=== PATIENT | female | born 1955 | race Caucasian/White ===

== ENCOUNTER 2022-02-09 21:49 | Emergency (ER) | payer OTHER, SELFPAY ==
--- NOTE | ~2022-02-09 | XR_ITS ---
EXAMINATION: XR SHOULDER, LEFT CLINICAL INFORMATION: Post reduction COMPARISON: None TECHNIQUE: One view of the left shoulder. FINDINGS: The previously seen glenohumeral dislocation has been successfully reduced. No fracture is seen on this single view. XR/XR shoulder LT 1V IMPRESSION: Successful reduction of left shoulder dislocation.
--- NOTE | ~2022-02-09 | XR_ITS ---
EXAMINATION: XR SHOULDER, LEFT CLINICAL INFORMATION: Shoulder pain COMPARISON: None TECHNIQUE: Three views of the left shoulder. FINDINGS: There is adfne - inferior dislocation of the left glenohumeral joint. No fractures are seen XR/XR shoulder LT min 2V IMPRESSION: Left shoulder dislocation.
[2022-02-09 22:01] VITALS: BP 135/83; PULSE 108; RESP 18; TEMP 36.2; O2SAT 97; BMI 32.1
[2022-02-09] MEDS: Acetaminophen 325 MG TABLET 650 MG PO (23:04)
--- NOTE | 2022-02-09 23:08 | PC.NURSE ---
PT A&Ox3, reports 10/10 left shoulder pain after fall. PT unable to lay on back due to pain. Meds given as documented.
[2022-02-09 23:19] VITALS: BP 160/93; PULSE 93; RESP 17; TEMP 36.4; O2SAT 96
[2022-02-09] MEDS: 0.9 % Sodium Chloride 1,000 ML 999 ML IV (23:54)
[2022-02-09] MEDS: Morphine Sulfate 4 MG/ML CARTRIDGE IVPUSH (23:54)
[2022-02-09] MEDS: ondansetron HCL 4 MG/2 ML VIAL IVPUSH (23:54)
--- NOTE | 2022-02-09 23:59 | ED_ITS ---
HPI - Extremity Problem General Chief complaint: Extremity Injury, Upper Stated complaint: ?dislocation of shoulder Time Seen by Provider: 02/09/22 23:17 Source: patient Mode of arrival: ambulatory Limitations: no limitations History of Present Illness HPI Narrative: Apparently patient tripped had a mechanical fall tried to catch herself came with pain in the left shoulder with obvious deformity x-ray shows anterior dislocate no fracture no other injuries Related Data Previous Rx's Medication Instructions Recorded ibuprofen 600 mg tablet 600 mg PO Q6H PRN fever or pain 02/10/22 #30 tabs Allergies Allergy/AdvReac Type Severity Reaction Status Date / Time No Known Allergies Allergy Unverified 11/15/19 19:03 [No Known Allergies*] Review of Systems Review of Systems: Yes all other systems are reviewed and are negative FOR[facility]LY [facility] Social History Social History Advance Directives: No Advance Directives Information Provided: Yes Physical Exam Vital Signs: Vital Signs: Last Vital Signs Temp 97.6 F 02/09/22 23:19 Pulse 93 02/09/22 23:19 Resp 17 02/09/22 23:19 BP 160/93 H 02/09/22 23:19 Pulse Ox 96 02/09/22 23:19 O2 Del Method 02/09/22 23:19 BMI result Body Mass Index 32.1 Appearance: Alert. Oriented X3. No acute distress. Eyes: PERRLA, No Nystagmus ENT: Pharynx normal. Oral Mucosa moist At NC Neck: Normal inspection. Neck supple. CVS: Normal heart rate and rhythm. Pulses normal. Respiratory: No respiratory distress. Equal air entry bilateral, no wheezing/rales/rhonchi Abdomen: Soft and nontender. Bowel sounds are present, no mass palpable, no CVA tenderness Skin: Skin warm and dry. Normal skin color. Normal skin turgor. Extremities: No lower extremity edema. No calf tenderness left arm adducted with squared contour, neurovascular intact Neuro: Oriented X 3. No motor deficit. No sensory deficit.No cerebellar signs , cranial nerves II-XII intact Medications Administered Discontinued Medications Generic Name Dose Route Start Last Admin Trade Name Freq PRN Reason Stop Dose Admin Acetaminophen 650 mg 02/09/22 22:05 02/09/22 23:04 Acetaminophen 325 Mg Tablet PO 02/09/22 22:06 650 mg ONCE ONE Administration Sodium Chloride 1,000 mls @ 999 mls/hr 02/09/22 23:48 02/10/22 00:55 Ns IV 02/10/22 00:48 Infused .Q1H1M ONE Infusion Morphine Sulfate 4 mg 02/09/22 23:48 02/09/22 23:54 Morphine Sulfate 4 Mg/Ml Cartridge IVPUSH 02/09/22 23:49 4 mg ONCE ONE Administration Protocol Ondansetron HCl 4 mg 02/09/22 23:48 02/09/22 23:54 Ondansetron Hcl 4 Mg/2 Ml Vial IVPUSH 02/09/22 23:49 4 mg ONCE ONE Administration Medical Decision Making Medical Decision Making MDM Narrative: Patient with left shoulder anterior dislocation reduced by scapular manipulation technique post reduction x-ray showed normal joint Procedures Orthopedic Joint Reduction Joint #1: Side: left Joint Reduction Location: shoulder Shoulder Technique Used (if applicable): scapula manipulation Post-reduction neuro exam: intact Post-reduction vascular: intact Post Reduction X-Ray Obtained: Yes Post Reduction X-Ray Results: reduced Patient Tolerated Procedure: well Discharge Plan Discharge Clinical Impression: Anterior dislocation of left shoulder Patient Disposition: Home, Self-Care Instructions: Shoulder Dislocation (ED) Additional Instructions: Rest your left arm in sling for 2-3 weeks to get completely better Tylenol/Motrin for pain Prescriptions: New ibuprofen 600 mg tablet 600 mg PO Q6H PRN (Reason: fever or pain) Qty: 30 0RF Stand Alone Forms: Work/School Release Interventions: ED Discharge Assessment Last Done: 02/10/22 01:53 Discharge Date/Time: 02/10/22 01:54
--- NOTE | 2022-02-10 | MHC.EDTECH ---
Pt vomited on herself Pt cleaned up and changed into hospital gown. Bed linen changed. Pt given warm blanket and call mooney placed in reach
--- NOTE | 2022-02-10 01:19 | PC.NURSE ---
Sling applied by pilot plant research technician to left arm. PT reports no pain at this time.
== END 2022-02-10 01:54 | disposition home or self-care (01) ==
PROVIDERS: Emergency Provider Internal Medicine
DX: S43.005A Unspecified dislocation of left shoulder joint, initial encounter (principal); M25.512 Pain in left shoulder; W01.0XXA Fall on same level from slipping, tripping and stumbling without subsequent striking against object, initial encounter; Y93.9 Activity, unspecified; Y92.9 Unspecified place or not applicable; Y99.9 Unspecified external cause status
CPT/HCPCS: 23650; 73020; 73030; 96361; 96374; 96375; 99284; J2270; J2405

== ENCOUNTER 2022-02-15 15:45 | Outpatient (REF) | payer OTHER, SELFPAY | END 2022-02-15 15:46 | disposition home or self-care (01) | LOC: HO.HOSX 15:45 | PROVIDERS: Visit Provider Physician Assistant | DX: M25.532 Pain in left wrist (principal) | CPT/HCPCS: 73110 ==

== ENCOUNTER 2022-02-18 11:54 | Outpatient (REF) | payer OTHER, SELFPAY ==
--- NOTE | 2022-02-18 09:27 | EMG_ITS ---
Left median and ulnar motor and sensory studies were performed. Left radial sensory and median and lateral antecubital brachial studies were performed and needle examination was performed. IMPRESSION: 1. Acute left brachial plexopathy, mostly affecting lateral part. 2. [id number] left median neuropathy across carpal tunnel. There is likely also injury to left axillary nerve, which would be difficult to define at this time. Repeat study is recommended in 4-8 weeks' time for better definition. MD LAWRENCE Parada/SUSI MTDD / [id number]
== END 2022-02-18 11:55 | disposition home or self-care (01) ==
LOC: HO.NEURO 11:54
PROVIDERS: Visit Provider Physician Assistant
DX: R20.0 Anesthesia of skin (principal); R20.2 Paresthesia of skin; M54.12 Radiculopathy, cervical region; S43.005A Unspecified dislocation of left shoulder joint, initial encounter
CPT/HCPCS: 95886; 95910

== ENCOUNTER → 2022-03-04 13:01 | Outpatient (BNVA) | payer OTHER, SELFPAY | PROVIDERS: PCP Pediatrics; Visit Provider Physician Assistant | DX: Z13.89 Encounter for screening for other disorder (principal) ==

== ENCOUNTER → 2022-04-08 14:40 | Outpatient (BNVA) | payer OTHER, SELFPAY | PROVIDERS: PCP Pediatrics; Visit Provider Physician Assistant | DX: Z13.89 Encounter for screening for other disorder (principal) ==

== ENCOUNTER 2022-05-04 14:54 | Outpatient (REF) | payer OTHER, SELFPAY ==
--- NOTE | ~2022-05-04 | MR_ITS ---
EXAMINATION: MR SHOULDER WITHOUT CONTRAST, LEFT CLINICAL INFORMATION: Left shoulder injury, pain. COMPARISON: Radiograph 02/10/2022. TECHNIQUE: MRI of the shoulder without contrast is performed on a 1.5 Dinah high-field scanner. FINDINGS: ROTATOR CUFF: Near-complete tear of the supraspinatus tendon with some posterior-most fibers remaining intact blending with the infraspinatus. The bulk of the tendon is retracted beyond the apex of the humeral head, approximately 2.7 cm. The rotator cuff appears otherwise intact. Moderate atrophy and mild fatty infiltration of the supraspinatus muscle. BICEPS: Normal. CORACOACROMIAL ARCH: The undersurface of the acromion is curved with anterior spurring. Mild acromioclavicular osteoarthritis. LABRUM/CAPSULE: The inferior labrum appears degenerated and blunted. No displaced labral tear. GLENOHUMERAL JOINT/MARROW: Cartilage thinning and marrow edema of the inferior glenoid. Cartilage thinning of the superior humeral head and mild degenerative spurring of the greater tuberosity. There is a small joint effusion with mild synovitis. Prominent fluid extends into the subcoracoid bursa. ADDITIONAL FINDINGS: None. MR/MR shoulder LT wo con IMPRESSION: 1. Near-complete tear of the supraspinatus tendon with retraction and moderate muscle atrophy/fatty infiltration. 2. Anterior spurring of the acromion. 3. Mild acromioclavicular and glenohumeral osteoarthritis with a small joint effusion and prominent fluid extending into the subcoracoid bursa.
== END 2022-05-04 14:55 | disposition home or self-care (01) ==
LOC: HO.MRI 14:54
PROVIDERS: PCP Pediatrics; Visit Provider Physician Assistant
DX: S46.002A Unspecified injury of muscle(s) and tendon(s) of the rotator cuff of left shoulder, initial encounter (principal); X58.XXXA Exposure to other specified factors, initial encounter; Y93.9 Activity, unspecified; Y92.9 Unspecified place or not applicable; Y99.9 Unspecified external cause status
CPT/HCPCS: 73221

== ENCOUNTER 2022-05-20 11:33 | Outpatient (REF) | payer OTHER, SELFPAY ==
--- NOTE | 2022-05-20 08:00 | EMG_ITS ---
Left median and ulnar motor and sensory studies were performed. Left radial sensory study was performed and paraspinal muscles with some limb muscles were tested with a needle. IMPRESSION: Mild left median neuropathy across carpal tunnel. Otherwise, no significant abnormality was noted. MD LAWRENCE Parada/SUSI / [id number]
== END 2022-05-20 11:34 | disposition home or self-care (01) ==
LOC: HO.NEURO 11:33
PROVIDERS: Visit Provider Physician Assistant
DX: R20.0 Anesthesia of skin (principal); R20.2 Paresthesia of skin
CPT/HCPCS: 95886; 95910

== ENCOUNTER → 2022-05-28 13:14 | Outpatient (BNVA) | payer OTHER, SELFPAY | PROVIDERS: PCP Pediatrics; Visit Provider Physician Assistant | DX: Z13.89 Encounter for screening for other disorder (principal) ==